=== PATIENT | female | born 1980 | race Two or more races ===

== ENCOUNTER 2019-06-25 10:46 | Emergency (ER) | payer OTHER, MEDICAID ==
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
[2019-06-25] MEDS ORDERED: ACETAMINOPHEN 325 MG TABLET PO ONE (11:20)
[2019-06-25] MEDS ORDERED: CYCLOBENZAPRINE HCL 10 MG TABLET PO ONE (13:29)
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
[2019-06-25 17:37] VITALS: BP 109/79
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
== END 2019-06-25 17:37 | disposition home or self-care (01) ==
LOC: ER 10:46
DX: S20.312A Abrasion of left front wall of thorax, initial encounter (principal); S20.419A Abrasion of unspecified back wall of thorax, initial encounter; S60.417A Abrasion of left little finger, initial encounter; S60.512A Abrasion of left hand, initial encounter; S60.414A Abrasion of right ring finger, initial encounter; S80.212A Abrasion, left knee, initial encounter; S80.211A Abrasion, right knee, initial encounter; M25.561 Pain in right knee; M25.562 Pain in left knee; M25.512 Pain in left shoulder; M79.641 Pain in right hand; M79.642 Pain in left hand; M54.6 Pain in thoracic spine; V59.40XA Driver of pick-up truck or van injured in collision with unspecified motor vehicles in traffic accident, initial encounter
CPT/HCPCS: 36415; 72070; 84703; 99283